=== PATIENT | male | born 1995 | race Caucasian/White ===

== ENCOUNTER 2021-11-24 14:06 | Emergency (ER) | payer BC, OTHER ==
[2021-11-24] MEDS: Lidocaine 2% 5 ML SDV INJECT ONE (14:46)
[2021-11-24 15:15] VITALS: BP 146/86; PULSE 93
== END 2021-11-24 15:00 | disposition home or self-care (01) ==
LOC: VM.ED 14:06
DX: S01.81XA Laceration without foreign body of other part of head, initial encounter (principal); W26.8XXA Contact with other sharp object(s), not elsewhere classified, initial encounter
CPT/HCPCS: 12001; 12011; 99282; 99283